=== PATIENT | male | born 1970 | race African-American/Black ===

== ENCOUNTER 2024-11-11 15:49 | Emergency (ER) | payer OTHER ==
[~2024-11-11] VITALS: Ht 177.8 cm; Wt 82.0 kg
[2024-11-11 15:52] VITALS: BP 140/90; PULSE 59; RESP 16; TEMP 36.9; O2SAT 95
== END 2024-11-11 21:42 | disposition left against medical advice (07) ==
LOC: ER 15:49
DX: M25.511 Pain in right shoulder (principal); Z53.21 Procedure and treatment not carried out due to patient leaving prior to being seen by health care provider